=== PATIENT | female | born 1960 | race Caucasian/White ===

== ENCOUNTER 2016-12-26 22:41 | Emergency (ER) | payer OTHER ==
--- NOTE | 2016-12-26 22:45 | EDPHY ---
H & P HPI/ROS: HPI CHIEF COMPLAINT: Syncope, head injury, alcohol ingestion HISTORY OF PRESENT ILLNESS: this patient very pleasant 56-year-old female denies any significant medical history she had 3 glasses of wine this evening she was standing outside conversing in a cervical with her friends and had a syncopal episode. She had head strike against the ground. Positive LOC. Stay in the left posterior scalp hematoma with laceration. She denies any preceding symptoms. She does tell me that when she drinks alcohol every once a while she does have syncopal episode. Tells me tetanus shot is not up-to-date. She denies chest pain or shortness of breath denies any other injury she does have a left posterior occiput hematoma with laceration and headache. This was witnessed by her friends. No seizure activity. denies being on any blood thinners Denies neck pain. GCS 15. Smells of alcohol. patient tells me her tetanus shot is not up-to-date. Past Medical History: No medical history Past Surgical History: denies surgical history Social History: denies daily use drugs alcohol tobacco products. Drink alcohol this evening. Lives locally. 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 Family History: Noncontributory ROS REVIEW OF SYSTEMS: A comprehensive 10 point review of systems is otherwise negative aside from elements mentioned in the history of present illness. Exam Constitutional Smells of alcohol triage nursing summary reviewed, vital signs reviewed, awake/alert. Eyes normal conjunctivae and sclera, EOMI, PERRLA. HENT head: left occiput hematoma present, of 3-4 cm vertical laceration. No midline cervical spine pain. moist mucus membranes, no epistaxis, neck supple/ no meningismus, no raccoon eyes. Respiratory clear to auscultation bilaterally, normal breath sounds, no respiratory distress, no wheezing. Cardiovascular rate normal, regular rhythm, no murmur, no edema, distal pulses normal. Gastrointestinal soft, non-tender, no rebound, no guarding, normal bowel sounds, no distension, no pulsatile mass. Genitourinary no CVA tenderness. Musculoskeletal no midline vertebral tenderness, full range of motion, no calf swelling, no tenderness of extremities, no meningismus, good pulses, neurovascularly intact. Skin pink, warm, & dry, no rash, skin atraumatic. Neurologic awake, alert and oriented x 3, AAOx3, moves all 4 extremities equally, motor intact, sensory intact, CN II-XII intact, normal cerebellar, normal vision, normal speech. Psychiatric normal mood/affect. Heme/Lymph/Immune no lymphadenopathy. Differential Diagnosis: Includes but is not limited to in a particular order, closed-head injury, skull fracture, head hematoma, head laceration, need for tetanus shot Medical Decision Making: Plan for this patient CT head without contrast for trauma. Clean her wound. Updated tetanus shot. [place] for head laceration. Re-evaluation: Laceration Repair Procedure: Verbal Consent was obtained, Under sterile conditions, The patient had lidocaine with epinephrine used approximately 7ccs to local anesthetize the Left post scalp 4cm Laceration. The wound was copiously irrigated with sterile fluid, the wound was explored for foreign bodies there were none visualized, the wound was explored with a sterile glove to the base. There are no deep structures involved, including no arterial injury. 7 ronan were placed in this patient's laceration. She had good close approximation of the wound edges. She Tolerated this well. 2338: Patient is refusing EKG. 2339: CT scan of the Head without IV contrast. The results of the study are negative for acute bleed or skull fracture.. The study was read by Dr. Mullins. I viewed the images myself on the PACS system. 2342: This patient tolerated 7 ronan very well. She understands to follow up in a week and have them removed. Keep the wound clean dry and intact. Protected. She understands return emergency room with strict return precautions have worsening headache, nausea, vomiting. No aspirin. Tylenol Motrin okay for pain control. Source: Patient Constitutional: Initial Vital Signs Temperature (C) 36.4 C 12/26/16 22:43 Heart Rate 87 12/26/16 22:43 Respiratory Rate 18 12/26/16 22:43 Blood Pressure 136/84 H 12/26/16 22:43 O2 Sat (%) 96 12/26/16 22:43 O2 Delivery Mode Room Air Allergies/Adverse Reactions: No Known Allergies Allergy (Unverified 12/26/16 22:43) Home Medications: Medication Instructions Recorded NK [No Known Home Meds] 12/26/16 Medical Decision Making - Diagnostics Imaging Results: Imaging Impressions Head CT 12/26/16 22:56 Impression: Normal. I telephoned results to Dr. Con Romeo at 2340 hours. Departure - Departure Disposition: Home, Routine, Self-Care Clinical Impression: Hematoma Laceration of head Qualifiers: Encounter type: initial encounter Location of open wound of head: scalp Foreign body presence: without foreign body Qualified Code(s): S01.01XA - Laceration without foreign body of scalp, initial encounter Head injury Qualifiers: Encounter type: initial encounter Qualified Code(s): S09.90XA - Unspecified injury of head, initial encounter Condition: Good Instructions: Laceration (ED), Staple Care (ED) Additional Instructions: 1. You need to have ronan your removed in 7 days. 2. Return to the emergency room if you develop severe headache, vomiting or you do not feel well. 3.You may take Tylenol or Motrin for pain control. No aspirin. I would ice her hematoma and head laceration. Keep it clean, dry and protected. Warm soapy water in the shower is fine. No direct stream contact.
[2016-12-26 22:49] VITALS: O2SAT 96
[2016-12-26] MEDS ORDERED: TDAP ADULT 0.5 ML INJ (BOOSTRIX) IM ONE (22:56)
[2016-12-27 00:09] VITALS: BP 112/72; PULSE 82; RESP 16; TEMP 98.1
== END 2016-12-27 00:11 | disposition home or self-care (01) ==
PROC: 0HQ0XZZ Repair Scalp Skin, External Approach (ICD-10-PCS; principal; 2016-12-26)
PROC: 3E0234Z Introduction of Serum, Toxoid and Vaccine into Muscle, Percutaneous Approach (ICD-10-PCS; principal; 2016-12-26)
DX: S01.01XA Laceration without foreign body of scalp, initial encounter (principal); Z23 Encounter for immunization; W22.8XXA Striking against or struck by other objects, initial encounter